=== PATIENT | female | born 1965 | race Caucasian/White ===

== ENCOUNTER 2023-09-19 13:55 | Outpatient (CLI) | payer OTHER, SELFPAY ==
--- NOTE | ~2023-09-19 | NM_ITS ---
EXAMINATION: NM thyroid scan w uptake DATE: 09/20/2023 15:53 INDICATION: Thyroid nodules. COMPARISON: None. TECHNIQUE: 0.348 mCi I-123 was administered orally. Scintigraphic images of the thyroid gland were o btained at 24 hours. Thyroid uptake was calculated by the technologist. FINDINGS: The thyroid uptake is 18% (normal 10-30%), with the right lobe measuring 3% uptake and the left 15%. There is relatively decreased activity in right thyroid lobe and inferior left thyroid lobe. IMPRESSION: 1. Relatively decreased activity in right thyroid lobe and inferior left thyroid lobe, consistent wit h a multinodular goiter. Correlate with thyroid ultrasound for risk stratification. 2. Normal 24-hour iodine uptake. Reviewed, dictated and finalized at location A. IMPRESSION: 1. Relatively decreased activity in right thyroid lobe and inferior left thyroi d lobe, consistent with a multinodular goiter. Correlate with thyroid ultrasoun d for risk stratification. 2. Normal 24-hour iodine uptake.
== END 2023-09-19 13:56 | disposition home or self-care (01) ==
LOC: ANHIMG 13:57
PROVIDERS: Visit Provider Internal Medicine
DX: E04.2 Nontoxic multinodular goiter (principal)
CPT/HCPCS: 78014; A9516

== ENCOUNTER 2024-01-18 12:29 | Outpatient (CLI) | payer OTHER, SELFPAY ==
--- NOTE | ~2024-01-18 | US_ITS ---
EXAMINATION: US FNA w image guidance DATE: 01/18/2024 13:45 INDICATION: Thyroid nodule. TECHNIQUE: The procedure and its benefits and risks were discussed with the patient. Risks specifically discusse d included bleeding. The patient verbalized understanding of the risks and agreed to proceed. The nec k was prepped and draped in the usual sterile manner. 1% lidocaine was used for local anesthesia. 7 passes were made with a 25G needle into the lesion under ultrasound guidance. There were no immedia te complications. FINDINGS: Grayscale ultrasound images demonstrate needles advanced into a 10 mm left thyroid nodule for biopsy. IMPRESSION: 1. Ultrasound-guided fine needle aspiration of a 10 mm left thyroid nodule. Reviewed, dictated and finalized at location A.
== END 2024-01-18 12:30 | disposition home or self-care (01) ==
LOC: ANHIMG 12:30
PROVIDERS: Visit Provider Internal Medicine
DX: E04.1 Nontoxic single thyroid nodule (principal)
CPT/HCPCS: 10005; 88172; 88173; 88305

== ENCOUNTER 2024-04-19 10:43 | Outpatient (CLI) | payer OTHER, SELFPAY ==
--- NOTE | ~2024-04-19 | DEXA_ITS ---
Bone Density Report Name: DAYLIN BRODY Age: 58 Sex: Female Ethnicity: White Date of : 1965 Indication: postmenopausal; screening for osteoporosis; cancer; asthma or emphysema; hysterectomy; Referring Provider: UNKNOWN, UNKNOWN Study: Bone densitometry was performed. Exam Date: April 19, 2024 Accession number: [id number] Bone Density: Region BMD T-score Z-score Classification AP Spine(L1-L4) 0.681 -3.3 -1.9 Osteoporosis Femoral Neck (Left) 0.558 -2.6 -1.3 Osteoporosis Total Hip (Left) 0.668 -2.2 -1.3 Osteopenia Femoral Neck (Right) 0.387 -4.2 -2.8 Osteoporosis Total Hip (Right) 0.484 -3.8 -2.8 Osteoporosis Total Hip Mean 0.576 -3.0 -2.1 Osteoporosis World Health Organization criteria for BMD impression classify patients as: Normal (T-score at or above -1.0), Osteopenia (T-score between -1.0 and -2.5), or Osteoporosis (T-score at or below -2.5). 10-year Fracture Risk: FRAX not reported because: Some T-score for Spine Total or Hip Total or Femoral Neck at or below -2.5 Clinical Information Provided by Patient: Has the following medical conditions: Asthma or Emphysema, Cancer, Hysterectomy, Thyroid Patient maximum height was 60 Menopause Age: 26 No regular weight bearing exercise Does not regularly consume dairy products Drinks caffeinated beverages Onset of menses at age 10 Number of children 3 Impression: The patient has osteoporosis, based on the Right Femoral Neck T-score. Discussion: HIGH RISK OF FRACTURE. BONE DENSITY IS UNDESIRABLY LOW AT ONE OR MORE SKELETAL SITES, CONSISTENT WITH OSTEOPOROSIS. ALSO, BONE DENSITY IS LOWER THAN EXPECTED FOR AGE AND SEX AT ONE OR MORE SKELETAL SITES; RECOMMEND A DILIGENT SEARCH FOR SECONDARY CAUSES OF BONE LOSS. This patient's lowest T-score meets the World Health Organization's (WHO) criteria for osteoporosis at one or more sites (T-score -2.5 or below). In untreated patients, the risk of osteoporotic fracture increases approximately two-fold for each 1.0 SD decrease in T-score. Low bone density is not the only risk factor for fracture; also consider factors such as patient's age, frailty or poor health, risk of falling, risk of injury, previous osteoporotic fracture, family history of osteoporosis, cigarette smoking, low body weight, etc. Not everyone with low bone mineral density has osteoporosis; osteomalacia and other metabolic bone disorders should also be considered. Patients who have osteoporosis should be evaluated for specific diseases and conditions (secondary causes) that may cause or contribute to bone loss. The [place] [employer] (AACE) and National Osteoporosis Foundation (NOF) recommend pharmacologic intervention for all postmenopausal women whose T-score is in this range. Also, this patient's bone mineral density is below the range considered normal for healthy age-, sex-, and race-matched controls at least one site (Z-score -2.0 or below). This warrants careful evaluation for diseases and conditions that may contribute to accelerated bone loss. The patient should follow a healthful lifestyle (good nutrition with adequate calcium and vitamin D, and appropriate weight-bearing exercise). Follow-Up: Consider a repeat BMD and Vertebral Fracture Assessment (VFA) exam in 2 years or sooner if medically necessary, to reassess this patient's status. Reported by: OSITO on 04/19/2024 11:14:00 AM. Reviewed, dictated and finalized at location [facility] [place]
== END 2024-04-19 10:44 | disposition home or self-care (01) ==
LOC: ANHIMG 10:46
DX: M85.88 Other specified disorders of bone density and structure, other site (principal); M81.0 Age-related osteoporosis without current pathological fracture; M85.852 Other specified disorders of bone density and structure, left thigh
CPT/HCPCS: 77080